=== PATIENT | female | born 2000 | race Caucasian/White ===

== ENCOUNTER → 2019-03-04 | Outpatient (REF) | payer OTHER | LOC: M PLALAB 11:18 | PROVIDERS: ATTEND Nurse Practitioner Women's Health | DX: E28.2 Polycystic ovarian syndrome (principal); Z32.02 Encounter for pregnancy test, result negative ==

== ENCOUNTER → 2019-03-04 | Outpatient (CLI) | payer OTHER ==
[2019-03-04 17:43] LABS: HEMOGLOBIN A1c 5.6 %
== END ==
LOC: M PLALAB 11:50
PROVIDERS: ATTEND Nurse Practitioner Women's Health
DX: E28.2 Polycystic ovarian syndrome (principal)

== ENCOUNTER → 2019-03-07 | Outpatient (CLI) | payer OTHER ==
--- NOTE | 2019-03-07 14:03 | REP ---
PELVIC ULTRASOUND: Real-time sonographic evaluation of the pelvis performed utilizing transabdominal and endovaginal technique. Bladder measures 6.7 x 6.0 x 8.2 cm. The uterus measures 7.3 x 3.1 x 4.1 cm. Endometrial thickness is 9 mm. Subcentimeter nabothian cyst is seen in the region of the cervix. Right ovary measures 5.2 x 2.7 x 2.6 cm and left ovary 2.9 x 2.4 x 2.2 cm. Multiple innumerable subcentimeter follicles are seen throughout the right ovary. Right ovary is enlarged compared to the left with a volume of 19.0 mL. Left ovary volume 7.9 mL. Left ovary could only been seen on transabdominal images. There are scattered subcentimeter follicles in the left ovary. IMPRESSION: Somewhat enlarged right ovary with innumerable subcentimeter follicles within the right ovary. Otherwise no adnexal mass or free fluid. Left ovary is only seen on transabdominal scanning and contains subcentimeter follicles. Electronically Signed by Yoel Segal MD 03/07/2019 03:55 P
== END ==
LOC: M RAD 12:41
PROVIDERS: ATTEND Nurse Practitioner Women's Health
DX: E28.2 Polycystic ovarian syndrome (principal); N92.6 Irregular menstruation, unspecified

== ENCOUNTER → 2019-09-20 | Outpatient (REF) | payer OTHER ==
[2019-09-20 15:56] LABS: CHLAMYDIA DNA AMPLIFICATION NEGATIVE (NEGATIVE); GC DNA AMPLIFICATION NEGATIVE (NEGATIVE)
== END ==
LOC: M LAB REF 13:38
PROVIDERS: ATTEND Physician Assistant
DX: R30.0 Dysuria (principal)

== ENCOUNTER → 2019-11-01 | Outpatient (REF) | payer OTHER ==
[2019-12-15 11:04] LABS: ANTINUCLEAR ANTIBODIES DIRECT See Separate Report
[2019-12-15 11:05] LABS: ANTI DS-DNA AB SEE SEPARATE REPORT; CYCLIC CITRULLINATED PEPTIDE See Separate Report UNITS; ENDOMYSIAL ABY IgA SEE SEPARATE REPORT; SSA SJOGRENS A SEE SEPARATE REPORT; SSB SJOGRENS B SEE SEPARATE REPORT
[2019-12-15 11:30] LABS: C REACTIVE PROTEIN QUANTITATIV 0.75 MG/DL (0.00-0.30)
== END ==
LOC: M PLALAB 16:23
PROVIDERS: ATTEND Internal Medicine Rheumatology
DX: M13.0 Polyarthritis, unspecified (principal)
CPT/HCPCS: 36415; 81374; 85652; 86038; 86140; 86200; 86225; 86235; 86255; 86431; G0463

== ENCOUNTER → 2019-11-28 | Outpatient (CLI) | payer OTHER | LOC: CANPRECLI → M PLALAB 14:10 | PROVIDERS: ATTEND Internal Medicine | DX: M13.0 Polyarthritis, unspecified (principal) ==